=== PATIENT | female | born 1995 | race American Indian/Alaskan Native ===

== ENCOUNTER 2018-12-28 16:49 | Emergency (ER) | payer MEDICAID ==
[2018-12-28] MEDS ORDERED: cefTRIAXone (Rocephin) 250 mg Inj IM ONE (17:32)
[2018-12-28] MEDS ORDERED: cefTRIAXone (Rocephin) 250 mg Inj ONE (17:47)
--- NOTE | 2018-12-28 18:23 | ED PDOC ---
HPI: Female Pain Time Seen by Provider: 12/28/18 17:23 Chief Complaint (Nursing): Female Genitourinary Chief Complaint (Provider): female genitoruinary History Per: Patient History/Exam Limitations: no limitations Onset/Duration Of Symptoms: Days (4x) Current Symptoms Are (Timing): Still Present Severity: Moderate Additional Complaint(s): 23 year old female with no past medical history presents to the ED for an evaluation of a female genitourinary problem that started 3x days ago. Patient states that for the past 1x week, she has been experiencing flu-like symptoms and was diagnosed with the flu by [facility], but denies taking tamiflu for symptoms. Patient reports having an improvement in symptoms. Patient states that for the past 4x days, she has been experiencing vaginal discharge and itching. Patient states that she had unprotected sexual intercourse with a stranger 1x week ago and thinks that she may have an infection. Patient denies having abdominal pain, urinary symptoms, back pain, and fevers. PMD: None provided Past Medical History Reviewed: Historical Data, Nursing Documentation, Vital Signs Vital Signs: Last Vital Signs Temp 98.3 F 12/28/18 17:15 Pulse 85 12/28/18 17:15 Resp 16 12/28/18 17:15 BP 115/59 L 12/28/18 17:15 Pulse Ox 99 12/28/18 17:15 ABBE Report Viewed: Yes - Medical History PMH: No Chronic Diseases - Surgical History Surgical History: No Surg Hx - Family History Family History: States: No Known Family Hx - Social History Current smoker - smoking cessation education provided: No Alcohol: None Drugs: Denies - Home Medications Home Medications: Ambulatory Orders Medication Instructions Recorded Benzocaine/Resorcinol [Vaginal 1 appl VAG BID #1 cream..g. 12/28/18 Itch Cream] Metronidazole [Flagyl] 500 mg PO ONCE #4 tablet 12/28/18 - Allergies Allergies/Adverse Reactions: Allergies Allergy/AdvReac Type Severity Reaction Status Date / Time No Known Allergies Allergy Verified 12/28/18 17:15 Review of Systems ROS Statement: Except As Marked, All Systems Reviewed And Found Negative Constitutional: Negative for: Fever Gastrointestinal: Negative for: Abdominal Pain Genitourinary Female: Positive for: Vaginal Discharge (and itching). Negative for: Dysuria Musculoskeletal: Negative for: Back Pain Physical Exam - Reviewed Nursing Documentation Reviewed: Yes Vital Signs Reviewed: Yes - Physical Exam Appears: Positive for: Well, Non-toxic, No Acute Distress Gastrointestinal/Abdominal: Positive for: Normal Exam, Soft. Negative for: Tenderness Pelvic Exam: Positive for: External Exam Normal, Speculum Exam Normal, Bimanual Exam Normal, Discharge (white discharge), Other (shank inspector present: female nurse: Shawnee gomez) Neurological/Psych: Positive for: Awake, Alert, Oriented (3x) - ECG O2 Sat by Pulse Oximetry: 99 (RA) Pulse Ox Interpretation: Normal Medical Decision Making Medical Decision Makin:23 Initial impression: 23 year old female with flu-like symptoms and vaginal discharge. Rule out UTI, STDs, and . Initial plan: * dipstick * chlamydia/gc RNA, TMA * GC culture * rocephin 250 mg im once * zithromax 1,000 mg PO once ScribeAttestation: Documented byGabby Alarcon, acting as a scribe for Ed Reagan MD. Provider ScribeAttestation: All medical record entries made by the Scribe were at my direction and personally dictated by me. I have reviewed the chart and agree that the record accurately reflects my personal performance of the history, physical exam, medical decision making, and the department course for this patient. I have also personally directed, reviewed, and agree with the discharge instructions and disposition. Disposition - Clinical Impression Clinical Impression: Vaginal discharge, Flu-like symptoms - Patient ED Disposition Is Patient to be Admitted: No Doctor Will See Patient In The: Office Counseled Patient/Family Regarding: Studies Performed, Diagnosis, Need For Followup - Disposition Referrals: [facility] [Outside] Disposition: Routine/Home Disposition Time: 18:34 Condition: GOOD Additional Instructions: CORBIN HUMPHREY, thank you for letting us take care of you today. Your provider was Ed Reagan MD and you were treated for FLU LIKE SYMPTOMS/MEDICAL EVAL. The emergency medical care you received today was directed at your acute symptoms. If you were prescribed any medication, please fill it and take as directed. It may take several days for your symptoms to resolve. Return to the Emergency Department if your symptoms worsen, do not improve, or if you have any other problems. Please contact your doctor or call one of the physicians/clinics you have been referred to that are listed on the Patient Visit Information form that is included in your discharge packet. Bring any paperwork you were given at discharge with you along with any medications you are taking to your follow up visit. Our treatment cannot replace ongoing medical care by a primary care provider outside of the emergency department. Thank you for allowing the [facility] [employer] team to be part of your care today. Prescriptions: Benzocaine/Resorcinol [Vaginal Itch Cream] 1 appl VAG BID #1 cream..g. Metronidazole [Flagyl] 500 mg PO ONCE #4 tablet Instructions: Vaginal Discharge in Adults
[2018-12-28 18:59] VITALS: BP 110/78; PULSE 78; RESP 19; TEMP 97.6; O2SAT 98
== END 2018-12-28 18:59 | disposition home or self-care (01) ==
LOC: H.ER 16:49
DX: N89.8 Other specified noninflammatory disorders of vagina (principal); J11.1 Influenza due to unidentified influenza virus with other respiratory manifestations
CPT/HCPCS: 81025; 87081; 87491; 87591; 96372; 99283; J0696